=== PATIENT | female | born 1940 | race Caucasian/White ===

== ENCOUNTER 2023-12-29 18:36 | Emergency (ER) | payer MEDICARE, OTHER, SELFPAY ==
[2023-12-29 18:42] VITALS: BP 154/97
[2023-12-29 19:58] LABS: Urine Albumin Negative (Neg - Trace); Urine Bilirubin Negative (Negative); Urine Character Clear (Clear); Urine Color Yellow; Urine Glucose Negative (Negative); Urine Ketone Negative (Negative); Urine Leukocyte Trace (Negative); Urine Nitrite Negative (Negative); Urine Occult Blood 4+ (Negative); Urine Urobilinogen Negative (Neg - 1+)
--- NOTE | 2023-12-29 20:13 | ED.GENMED ---
History of Present Illness
General
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
Source: patient
Exam Limitations: none
Time Seen by Provider: 12/29/23 19:28
Travel History
Have you had any contact with someone who has COVID-19?: No
Do you have any symptoms of coronavirus? Fever > 100 degrees, chills, cough, shortness of breath, sore throat, loss of taste or smell, muscle aches, or headache?: No
History of Present Illness
History of Present Illness:
This is a 83 year old female that comes in with c/o vaginal or urethral bleeding. States that today she went to urinate and when she wipped there was blood on the toilet paper. State that this only happened once. State that she just finished
Macrobid 4-5 days ago after she had a UTI. States that she has an appointment tomorrow with the Urologist. Denies any fever, chills, chest pain, SOB, abd pain, nausea, vomiting, diarrhea, black or bloody stool, headache, dizziness, urinary burning.
Past History
Past History
ED Past Medical History: GERD, HTN, Other and Other ( sinus problems, bilateral PEs 09, recent microscopic hematuria, Hiatal hernia, )
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
repair X 3)
Social History
Tobacco: Non-smoker
Alcohol: Occasional
Drug: None
Personal:
Living: alone
Employment: Retired
Family History
Family History: CAD (father 68) and Other (Hypercoagulable state)
Review of Systems
Review of Systems
All Other Systems: ROS reviewed and negative except as documented in HPI and ROS
Constitutional: Reports no symptoms; Denies fever or chills
EENT: Reports no symptoms
Respiratory: Reports no symptoms; Denies cough
Cardiac: Reports no symptoms; Denies chest pain
ABD/GI: Denies abdominal pain, nausea, vomiting, diarrhea, bloody stools or black stools
: Reports other (Blood on the toilet paper X 1)
Musculoskeletal: Reports no symptoms
Skin: Reports no symptoms
Neurological: Reports no symptoms; Denies dizzy or headache
Psychiatric: Reports no symptoms
Phy Exam
General Physical Exam
General Presentation: no apparent distress
General age: appears stated age
General Skin: warm and dry
General Habitus: normal
General Mental: alert
General Hydration: appears well hydrated
ENT Exam
ENT Exam: TM's normal, pharynx normal and neck supple
Eye Exam
Eye Exam: EOMI
Cardiovascular Exam
Cardiovascular Exam: regular rate/rhythm, no edema and normal peripheral pulses
Pulmonary Exam
Pulmonary Exam: lungs clear, no respiratory distress, no rales, chest non tender, no crackles, no rhonchi, no wheezing and no cough
Gastrointestinal Exam
Gastrointestinal Exam: normal bowel sounds, non tender, soft, no organomegaly, no pulsatile mass and non distended
Genitourinary Exam Female
Vaginal Exam: normal and other (appears to have small amount of blood noted from the Urethra)
Vaginal Bleeding: none
Musculoskeletal Exam
Musculoskeletal Exam: full ROM and no edema
Skin Exam
Skin Exam: normal color, warm/dry, no rash and no petechia
Psychiatric Exam
Psychiatric Exam: normal mood/affect
Course
Orders/Labs/Results
Orders:
Orders
12/29/23 19:43
Urinalysis Reflex To Culture Urgent
Date Specimen was Collected: 12/29/23
Time Specimen was Collected: 18:43
Urine Microscopic Reflex Cult Urgent
Urine Culture Urgent
GOMEZ Source: U
Specimen Description:
Date Specimen was Collected: 12/29/23
Time Specimen was Collected: 18:43
12/29/23 21:17
Complete Blood Count/With Diff Urgent
Comprehensive Metabolic Panel Urgent
Lactic Acid Urgent
12/29/23 22:29
Fosfomycin [Monurol] 3 gm PO ONCE ONE
Abnormal Lab Results
12/29/23 12/29/23
19:43 21:17
Monocytes % 11.5 H %
(1.7-9.3)
BUN 18 H mg/dl
(7-17)
Ur Occult Blood Reflex 4+ A
(Negative)
Leukocyte Esterase Rfl Trace A
(Negative)
Urine RBC 3-6 A /HPF
(0-2)
Urine WBC (Reflex) 16-20 A /HPF
(0-5)
Urine Bacteria (Reflex) Few A
(Negative)
12/29/23 21:17
12/29/23 21:17
Slight Dehydration. Urine questionable as contaminated. however, Significant blood
Vital Signs
Initial and Last Documented VS:
Initial Vital Signs
Temp Pulse Resp BP Pulse Ox
97.8 F 83 17 154/97 99
12/29/23 18:42 12/29/23 18:42 12/29/23 18:42 12/29/23 18:42 12/29/23 18:42
Last Documented Vital Signs
Temp Pulse Resp BP Pulse Ox
97.8 F 83 17 154/97 99
12/29/23 18:42 12/29/23 18:42 12/29/23 18:42 12/29/23 18:42 12/29/23 18:42
MDM/Problems Addressed
Differential Diagnosis Includes:
UTI, Ureteral bleeding,
MDM/Problems Addressed:
This is a 83 year old female that comes in with c/o blood in the toilet paper that happened only once. States that she just finished an antibiotic for a UTI about 4-5 days ago.
Will check labs and get Urine.
Back into see patient. Explained that her blood work shows slight Dehydration. Her urine is questionable for infection as there is 4+ blood and WBC's. However, there is > 30 Squamous cells. Offered patient to wait and see the Urologist tomorrow or
give a One time dose on Monurol here. Patient would like the antibiotic as she states that she has no blood with the UTI that she recently had. Will discharge home.
Chronic conditions affecting care:
UTI history
Acute Exacerbation and/or Progression of Chronic Illness:
NA
*Pulse Oximetry
Patient hypoxic: no
*EKG
Interpreted by ED Provider?: NA
Rate: EKG- N/A
*Web Development Director Interpretation
Rate: Web Development Director- N/A
*Critical Care Note
Total Time (30-74mins, 75-104mins- exclusive of procedures): Not Applicable
ED Attending Note
-
Portions of this chart may have been created with voice recognition software.� Occasional wrong word or��sound alike� substitutions may have occurred due to the inherent limitations of voice recognition software.
Discharge Plan
Departure
Patient Disposition: Home (Routine Discharge)
Date of Disposition: 12/29/23
Time of Disposition: 22:32
Patient with high blood pressure during this ER visit?: Yes
Condition: Good
Covid-19: Not Applicable
Discharge Problem:
Urinary tract infection
Instructions: Urinary Tract Infection, Adult (DC), BLOOD PRESSURE
Prescriptions:
No Action
warfarin [Jantoven] 3 MG tablet
3 mg PO HS
citalopram 20 MG tablet
20 mg PO DAILY@1300 Qty: 0
vitamin B complex 1 TAB tablet
1 tab PO DAILY
biotin 5,000 MCG tablet,disintegrating
5,000 mcg PO DAILY
diphenhydramine-acetaminophen [Tylenol PM Extra Strength] 1 EACH tablet
1 tab PO HS
cholecalciferol (vitamin D3) 250 MCG tablet
10,000 unit PO SUMOWEFR
aspirin 81 MG tablet,chewable
81 mg PO DAILY 14 Days Qty: 14 0RF
Rx Instructions:
Stop once INR>2
oxycodone-acetaminophen 5 MG/325 MG tablet
1 tab PO Q4HPRN PRN (Reason: pain) Qty: 8 0RF
Referrals:
Simone Day MD [Active] - Tomorrow
Trinidad Felix DO [Family Provider] -
Activity Restrictions/Additional Instructions:
As discussed, your blood work shows slight Dehydration. Please increase your water intake to 8-8oz glasses daily. Your urine is questionable but there is 4+ blood. You have been given an antibiotic which is a one time dose. Please follow up with the
Urologist tomorrow as scheduled. IF YOU HAVE FEVER, OR YOU HAVE ANY OTHER CONCERNS PLEASE RETURN TO THE EMERGENCY ROOM.
Interventions
Interventions:
*General Assessment Last Done: 12/29/23 18:43
*ED COVID-19 Vaccine History Last Done: 12/29/23 18:43
ED-Female Genitourinary Assessment Last Done: 12/29/23 21:20
[2023-12-29 20:21] LABS: Urine Bacteria Few (Negative); Urine Squamous Cell >30 /LPF (Few); Urine White Cell 16-20 /HPF (0-5)
[2023-12-29 21:27] LABS: % Basophils 0.2 % (0-2); % Eosinophils 0.6 % (0-6); % Immature Granulocytes 0.2 % (0-0.5); % Lymphocytes 25.1 % (20.5-51.1); % Monocytes 11.5 % (1.7-9.3); % Neutrophils 62.4 % (42.2-75.2); Absolute Lymphocytes 1.3 10^3/uL (1.2-3.4); Absolute Monocytes 0.6 10^3/uL (0.1-0.6); Absolute Neutrophils 3.3 10^3/uL (1.4-6.5); Hematocrit 40.5 % (37.0-47.0); Hemoglobin 13.9 g/dL (12.0-16.0); Mean Corp Hgb Conc. 34.3 g/dL (33.0-37.0); Mean Corpuscular Volume 90.2 fL (81.0-99.0); Mean Platelet Volume 9.6 fL (7.4-10.4); Nucleated Red Blood Cells % 0 %; Platelet Count 160 10^3/uL (130-400); Red Blood Cell Count 4.49 10^6/uL (4.20-5.40); Red Cell Dist. Width 12.2 % (11.5-14.5); White Blood Cell Count 5.2 10^3/uL (4.8-10.8)
[2023-12-29 21:39] LABS: Lactic Acid 0.8 mmol/L (0.7-2.0)
[2023-12-29 21:46] LABS: ALT (SGPT) 32 U/L (0-35); AST (SGOT) 34 U/L (14-36); Albumin 3.7 g/dl (3.5-5.0); Alkaline Phosphatase 98 U/L (38-126); Blood Urea Nitrogen 18 mg/dl (7-17); Calcium 8.6 mg/dl (8.4-10.2); Carbon Dioxide 29 mmol/L (22-30); Chloride 105 mmol/L (98-107); Glucose 93 mg/dl (70-99); Potassium 3.9 mmol/L (3.5-5.1); Sodium 136 mmol/L (135-145); Total Bilirubin 0.7 mg/dl (0.2-1.3); Total Protein 6.3 g/dl (6.3-8.2); eGFR > 60.00
[2023-12-29] MEDS: MONUROL 3 GM PO (22:36)
[2023-12-29 22:42] VITALS: BP 150/93
== END 2023-12-29 22:48 | disposition home or self-care (01) ==
LOC: EMR 18:36
PROVIDERS: Clinical Nurse Specialist Family Health; Emergency Medicine; EMERGENCY PHYSICIAN Emergency Medicine; FAMILY PHYSICIAN Family Medicine
DX: N39.0 Urinary tract infection, site not specified (principal); K21.9 Gastro-esophageal reflux disease without esophagitis; I10 Essential (primary) hypertension; Z82.49 Family history of ischemic heart disease and other diseases of the circulatory system; Z87.440 Personal history of urinary (tract) infections; Z90.49 Acquired absence of other specified parts of digestive tract; Z90.710 Acquired absence of both cervix and uterus
CPT/HCPCS: 99283; 80053; 81003; 81015; 83605; 85025; 87086